=== PATIENT | female | born 2000 | race Caucasian/White ===

== ENCOUNTER 2019-09-25 14:20 | Emergency (ER) | payer OTHER ==
--- NOTE | 2019-09-25 15:19 | EDM.PDOC ---
ED HPI GENERAL MEDICAL PROBLEM - General Chief Complaint: Abdominal Pain Stated Complaint: Bleeding with BM X 3 today Time Seen by Provider: 09/25/19 15:00 Source of Information: Reports: Patient, Family History Limitations: Reports: No Limitations - History of Present Illness INITIAL COMMENTS - FREE TEXT/NARRATIVE: Patient is a 19 year old white female with history of Atopic Dermatitis with recent flare of her dermatitis who presents with complaint of passing 2 BM's 1/2 blood and 1/2 stool followed by passing 1/2 cup of blood per rectum. Symptoms started today . Had some moderate GI cramping initially this has cleared. No prior history of GI bleeding. Onset: Today Onset Date: 09/25/19 Onset Time: 10:00 Duration: Hour(s): (5 hours) Severity: Moderate (Patient reports initial BM's were stool and blood mixed with 3rd BM being almost all blood. Estimates losing about 1 cup of blood to) Bilateral Abdomen Pain Score (Numeric/FACES): 7 - Related Data Allergies Allergy/AdvReac Type Severity Reaction Status Date / Time No Known Allergies Allergy Verified 09/25/19 14:48 Past Medical History Dermatologic History: Reports: Other (See Below) (History of ATopic Dermatitis . Has recently been on mometasone cream for "flare " of Atopic Dermatitis. Seen at [facility] for this problem 1 week ago and is scheduled for allergy testing in future) Social & Family History - Tobacco Use Smoking Status *Q: Never Smoker Second Hand Smoke Exposure: No - Caffeine Use Caffeine Use: Reports: None - Recreational Drug Use Recreational Drug Use: No ED ROS GENERAL - Review of Systems Review Of Systems: See Below Constitutional: Denies: Fever, Chills HEENT: Denies: Ear Pain, Throat Pain Respiratory: Denies: Shortness of Breath, Cough Cardiovascular: Reports: Lightheadedness. Denies: Chest Pain Endocrine: Reports: Fatigue, Other (Fatigue for about over 6 months that has been imporved for past few weeks) GI/Abdominal: Reports: Abdominal Pain, Diarrhea. Denies: Nausea, Vomiting ( Has had some crampy abodminel pain at times sinc GI bleed started) : Denies: Dysuria, Flank Pain, Hematuria Skin: Reports: Other (Patietn with atop[ic dermatitis and having a flare. Seen several days ago by Derm at [facility]) ED EXAM, GI/ABD - Physical Exam Exam: See Below Exam Limited By: No Limitations General Appearance: Alert, WD/WN, Anxious Ears: Normal External Exam Nose: Normal Inspection Throat/Mouth: Normal Inspection, Normal Lips, Normal Gums Head: Atraumatic, Normocephalic Neck: Non-Tender, Full Range of Motion Respiratory/Chest: No Respiratory Distress, Lungs Clear, Normal Breath Sounds, Chest Non-Tender Cardiovascular: Regular Rate, Rhythm, No Murmur GI/Abdominal Exam: Normal Bowel Sounds, Soft, Non-Tender, No Distention, Other Rectal (Female) Exam: Normal Exam, Normal Rectal Tone Back Exam: Normal Inspection, Full Range of Motion Extremities: Normal Inspection, Normal Range of Motion Neurological: Alert, Oriented, Normal Cognition, Normal Gait Psychiatric: Normal Affect, Anxious Skin Exam: Warm, Dry, Rash (Rash from Atopic Dermatitis on arms and legs) Lymphatic: No Adenopathy Course - Vital Signs Text/Narrative:: Initially labs ordered and IV fluids ordered. Patient unable to tolerate IV start and after initial attempt patient refused further IV starts Anoscopy performed with mild inflammation of colonic mucosa. NOrmal rectal exam. Last Recorded V/S: Last Vital Signs Temp 97.6 F 09/25/19 14:49 Pulse 89 09/25/19 16:31 Resp 18 09/25/19 16:31 BP 123/59 L 09/25/19 16:31 Pulse Ox 98 09/25/19 16:31 - Orders/Labs/Meds Orders: Active Orders 24 hr Category Date Time Status STOOL CULTURE Stat Lab 09/25/19 14:57 Ordered Labs: Laboratory Tests 09/25/19 09/25/19 Range/Units 15:06 15:10 WBC 9.9 (4.0-11.0) K/uL RBC 4.41 (3.80-5.80) M/uL Hgb 13.5 (11.5-16.5) g/dL Hct 39.6 (37.0-47.0) % MCV 90 (76-96) fL MCH 30.6 (27.0-32.0) pg MCHC 34.1 (31.0-35.0) g/dL RDW 12.1 (11.0-16.0) % Plt Count 316 (150-500) K/uL MPV 8.4 (6.0-10.0) fL Neut % (Auto) 75.3 H (45.0-70.0) % Lymph % (Auto) 14.9 L (20.0-40.0) % [place] % (Auto) 5.8 (3.0-10.0) % Eos % (Auto) 3.6 (1.0-5.0) % Baso % (Auto) 0.4 (0.0-0.5) % Neut # (Auto) 7.43 (2.00-7.50) K/uL Lymph # (Auto) 1.47 L (1.50-4.00) K/uL [place] # (Auto) 0.57 (0.20-0.80) K/uL Eos # (Auto) 0.36 (0.04-0.40) K/uL Baso # (Auto) 0.04 (0.02-0.10) K/uL Sodium 141 (136-145) mmol/L Potassium 3.9 (3.5-5.1) mmol/L Chloride 106 (98-107) mmol/L Carbon Dioxide 27.7 (21.0-32.0) mmol/L Anion Gap 11.2 (5.0-15.0) mmol/L BUN 13 (8-26) mg/dL Creatinine 0.69 (0.55-1.02) mg/dL Est Cr Clr Drug Dosing TNP Estimated GFR (MDRD) > 60 (>60) MLS/MIN BUN/Creatinine Ratio 18.8 (6-25) Glucose 88 (74-100) mg/dL Calcium 8.9 (8.5-10.1) mg/dL Total Bilirubin 0.5 (0.0-1.0) mg/dL AST 16 (15-37) U/L ALT 19 (12-78) U/L Alkaline Phosphatase 112 (46-116) U/L Total Protein 7.3 (6.4-8.2) g/dL Albumin 4.0 (3.4-5.0) g/dL Globulin 3.3 (2.2-4.2) g/dL Albumin/Globulin Ratio 1.2 (0.8-2.0) Meds: Medications Discontinued Medications Generic Name Dose Route Start Last Admin Trade Name Freq PRN Reason Stop Dose Admin Lactated Ringer's 1,000 mls @ 999 mls/hr 09/25/19 14:58 09/25/19 15:49 Ringers, Lactated IV 09/25/19 15:58 Not Given BOLUS ONE Departure - Departure Time of Disposition: 16:38 Disposition: Home, Self-Care 01 Clinical Impression: GI bleed Qualifiers: GI bleed type/associated pathology: unspecified gastrointestinal hemorrhage type Qualified Code(s): K92.2 - Gastrointestinal hemorrhage, unspecified - Discharge Information *PRESCRIPTION DRUG MONITORING PROGRAM REVIEWED*: Not Applicable *COPY OF PRESCRIPTION DRUG MONITORING REPORT IN PATIENT ROHAN: Not Applicable Referrals: PCP,None [Primary Care Provider] - Forms: ED Department Discharge, ED Return to Work/School Form Additional Instructions: Follow up with PMD as scheduled on Saturday Return to nearest ED for any bleeding over 1/2 cup of blood, lightheadedness, weakness or other worsening Travel back to [facility] [place] to be closer to higher level of care You will need referral to GI specialist for evaluation of this bleeding problem Possible diagnoses include Ulcerative Colitis, and Crohn's Disease Condition on discharge is stable Sepsis Event Note (ED) - Evaluation Sepsis Screening Result: No Definite Risk - Focused Exam Vital Signs: Vital Signs Temp Pulse Resp BP Pulse Ox 09/25/19 16:31 89 18 123/59 L 98 09/25/19 14:49 97.6 F 93 18 118/69 100 - My Orders Last 24 Hours: My Active Orders 09/25/19 14:57 STOOL CULTURE Stat - Assessment/Plan Last 24 Hours: My Active Orders 09/25/19 14:57 STOOL CULTURE Stat
[2019-09-25] MEDS: Lactated Ringers 1,000 ML IV ONE (15:49)
== END 2019-09-25 16:51 | disposition home or self-care (01) ==
LOC: LB.ED 14:20
DX: K92.2 Gastrointestinal hemorrhage, unspecified (principal)
CPT/HCPCS: 36415; 80053; 85025; 99283